=== PATIENT | female | born 1995 | race Caucasian/White ===

== ENCOUNTER 2021-05-10 18:32 | Emergency (ER) | payer OTHER ==
[~2021-05-10] VITALS: Ht 152.4 cm; Wt 72.6 kg
[2021-05-10 19:04] VITALS: BP_SYST 148
[2021-05-10] MEDS ORDERED: CEPH250C PO (21:14)
[2021-05-10] MEDS ORDERED: IBUP-1969 PO (21:14)
[2021-05-10 21:20] VITALS: BP_SYST 148
== END 2021-05-10 21:20 | disposition home or self-care (01) ==
LOC: SED 18:32
DX: H66.92 Otitis media, unspecified, left ear (principal); M26.69 Other specified disorders of temporomandibular joint
CPT/HCPCS: 99283